=== PATIENT | male | born 1945 | race Caucasian/White ===

== ENCOUNTER 2019-08-07 07:32 | Day surgery (SDC) | payer MEDICARE, OTHER ==
[~2019-08-07] VITALS: Ht 188 cm; Wt 94.2 kg
[~2019-08-07 07:32] MED LIST: ATORVASTATIN; Aspir 8181 MG; CALCIT950; CLON1; DIAZ10 PO; FISH1000; HYDACE5 PO; HYOS.125 SL; METO25ER; MULVITMIND; Prinivil10 MG; Protonix40 MG PO; TRAM50; ZOLP10
== END 2019-08-07 09:28 | disposition home or self-care (01) ==
LOC: ORSCSDS 07:32
PROVIDERS: Surgery
PROC: 0DJ08ZZ Inspection of Upper Intestinal Tract, Via Natural or Artificial Opening Endoscopic (ICD-10-PCS; principal; 2019-08-07 08:45)
DX: K30 Functional dyspepsia (principal); I25.10 Atherosclerotic heart disease of native coronary artery without angina pectoris; I25.2 Old myocardial infarction; Z87.11 Personal history of peptic ulcer disease; Z87.891 Personal history of nicotine dependence; Z79.82 Long term (current) use of aspirin; Z79.899 Other long term (current) drug therapy
CPT/HCPCS: J2704; J7120

== ENCOUNTER → 2019-11-06 | Outpatient (CLI) | payer MEDICARE, OTHER | END | disposition home or self-care (01) | LOC: LAB SHORT 11:38 → PLD 11:38 | DX: C44.329 Squamous cell carcinoma of skin of other parts of face (principal) | CPT/HCPCS: 88305 ==

== ENCOUNTER → 2019-12-19 | Outpatient (CLI) | payer MEDICARE, OTHER | END | disposition home or self-care (01) | LOC: LAB SHORT 09:07 → PLD 09:07 | DX: C44.329 Squamous cell carcinoma of skin of other parts of face (principal); L57.0 Actinic keratosis | CPT/HCPCS: 88305 ==

== ENCOUNTER 2021-01-01 15:52 | Observation (INO) | payer MEDICARE, OTHER ==
[~2021-01-01] VITALS: Ht 190.5 cm; Wt 95.0 kg
[2021-01-01 16:34] LABS: BASOPHILS ABSOLUTE AUTO 0.05 K/mm3 (0.00-0.23); BASOPHILS PERCENT AUTO 1 % (0-2); EOSINOPHILS ABSOLUTE AUTO 0.51 K/mm3 (0.00-0.68); EOSINOPHILS PERCENT AUTO 10 % (0-6); Hematocrit 37.7 % (37.0-53.0); Hemoglobin 13.2 g/dL (13.5-17.5); IMMATURE GRAN ABSOLUTE AUTO 0.03 K/mm3 (0.00-0.10); IMMATURE GRAN PERCENT AUTO 1 % (0-1); LYMPHOCYTES ABSOLUTE AUTO 1.84 K/mm3 (0.84-5.20); LYMPHOCYTES PERCENT AUTO 35 % (21-46); MONOCYTES ABSOLUTE AUTO 0.63 K/mm3 (0.16-1.47); MONOCYTES PERCENT AUTO 12 % (4-13); Mean Corpuscular HGB 34.5 pg (26.0-34.0); Mean Corpuscular Volume 98 fL (80-100); Mean Platelet Volume 9.8 fL (9.1-12.4); NEUTROPHILS ABSOLUTE AUTO 2.23 K/mm3 (1.96-9.15); NEUTROPHILS PERCENT AUTO 42 % (41-73); Platelet Count 108 K/mm3 (150-400); RDW Coefficient Variation 14.1 % (11.7-14.2); RDW Standard Deviation 49.9 fL (35.1-46.3); Red Blood Cell Count 3.83 M/mm3 (4.30-5.90); White Blood Cell Count 5.29 K/mm3 (4.00-11.30)
[2021-01-01 17:18] LABS: Alanine Aminotransfer (ALT/SGP 20 U/L (12-78); Albumin, Blood 3.5 g/dL (3.4-5.0); Alk Phos 62 U/L (50-136); Anion Gap 4 mmol/L (6-16); Aspartate Aminotrans (AST/SGOT 21 U/L (12-37); Bilirubin, Total 0.5 mg/dL (0.1-1.0); Blood Urea Nitrogen 25 mg/dL (8-24); CO2, Blood 27 mmol/L (21-32); Calcium, Blood 8.9 mg/dL (8.5-10.1); Chloride, Blood 109 mmol/L (98-108); Creatinine, Blood 1.04 mg/dL (0.60-1.20); Globulin, Blood 3.6 g/dL (2.2-4.0); Glomerular Filtration Rate >60 (60-); Glucose, Blood 94 mg/dL (70-99); Magnesium, Blood 2.3 mg/dL (1.6-2.4); Potassium, Blood 4.4 mmol/L (3.5-5.5); Sodium, Blood 140 mmol/L (136-145); Total Protein, Blood 7.1 g/dL (6.4-8.2)
[2021-01-01 20:48] LABS: Source, Urine Voided
[2021-01-01 20:54] LABS: Troponin I <0.015 ng/mL (0.000-0.040)
[2021-01-01 20:54] LABS: Appearance, Urine Clear (Clear); Bilirubin, Urine Neg (Neg); Blood, Urine Neg (Neg); Color, Urine Yellow (P-Yellow); Glucose Qualitative, Urine Neg (Neg); Ketones, Urine Neg (Neg); Leukocyte Esterase, Urine Neg (Neg); Nitrite, Urine Neg (Neg); Protein, Urine Neg (Neg); Specific Gravity, Urine 1.025 (1.003-1.022); Urobilinogen, Urine NORM (Normal)
[2021-01-01] MEDS ORDERED: PANT20 PO (21:19)
[2021-01-01] MEDS ORDERED: Aspir 8181 MG PO (21:19)
[2021-01-01 21:42] LABS: SARS-Cov-2 (COVID-19) PCR, MMC NEGATIVE (NEGATIVE)
--- NOTE | 2021-01-01 22:30 | NUR ---
RECEIVED REPORT FROM SONIDOED RN. PT TRANSPORTED TO MEDICAL FLOOR, SETTLED INTO ROOM, IN NAD. NO ACUTE NEEDS ASSESSED AT THIS TIME. BREAKER LAYER AT THE BEDSIDE. CALL LIGHT, POSSESSIONS IN REACH, BED IN LOW AND LOCKED POSITION WITH ALARMS ON.
[2021-01-02 05:25] LABS: BASOPHILS ABSOLUTE AUTO 0.03 K/mm3 (0.00-0.23); BASOPHILS PERCENT AUTO 1 % (0-2); EOSINOPHILS ABSOLUTE AUTO 0.48 K/mm3 (0.00-0.68); EOSINOPHILS PERCENT AUTO 10 % (0-6); Hematocrit 37.8 % (37.0-53.0); Hemoglobin 13.1 g/dL (13.5-17.5); IMMATURE GRAN ABSOLUTE AUTO 0.03 K/mm3 (0.00-0.10); IMMATURE GRAN PERCENT AUTO 1 % (0-1); LYMPHOCYTES ABSOLUTE AUTO 1.64 K/mm3 (0.84-5.20); LYMPHOCYTES PERCENT AUTO 36 % (21-46); MONOCYTES ABSOLUTE AUTO 0.53 K/mm3 (0.16-1.47); MONOCYTES PERCENT AUTO 12 % (4-13); Mean Corpuscular HGB Conc 34.7 g/dL (31.5-36.5); Mean Corpuscular Volume 98 fL (80-100); Mean Platelet Volume 9.7 fL (9.1-12.4); NEUTROPHILS PERCENT AUTO 41 % (41-73); Platelet Count 85 K/mm3 (150-400); RDW Coefficient Variation 13.7 % (11.7-14.2); RDW Standard Deviation 48.9 fL (35.1-46.3); Red Blood Cell Count 3.85 M/mm3 (4.30-5.90); White Blood Cell Count 4.61 K/mm3 (4.00-11.30)
--- NOTE | 2021-01-02 06:37 | NUR ---
FLEET SERVICE MANAGER SUMMARY PT RESTING, IN NAD. VS REVIEWED,WNL. NO ACUTE CHANGES IN CONDITION TO REPORT OVERNIGHT, NEURO STATUS WNL. HAS BEEN SLEEPING OFF AND ON. UPDATED THIS MORNING ON PT CONDITION AND LIKELY D/C THIS AFTERNOON, STATED SHE WOULD CALL LATER THIS MORNING FOR AN UPDATE. PT DENIES NEEDS AT THIS TIME. CALL LIGHT, POSSESSIONS IN REACH, BED IN LOW AND LOCKED POSITION. WILL CONTINUE TO PROVIDE CARE UNTIL REPORT GIVEN TO ONCOMING RN.
[2021-01-02] MEDS ORDERED: CLOP75 PO ×2 (15:30→15:31)
--- NOTE | 2021-01-02 16:12 | NUR ---
SHIFT SUMMARY PT IS A&O, PLEASANT AND CO-OP. DENIED NEEDS THRU OUT THE DAY. PT WAITING TO GO HOME SINCE THIS AM. DR OWENS WAITING FOR US RESULTS TO POST. NO ACUTE CHANGES TO PRESENT. VSS; SEE CHART. PT DENIED PAIN, NO C/O. D/C ORDERS PLACED. PT CALLED . D/C INSTRUCTIONS DISCUSSED WITH PT AND . MEDS FAXED TO [facility] IN [place], PER PT REQUEST. PT AND VERBALIZED UNDERSTANDING OF NEW MEDICATION, PLAVIX. DECLINED FURTHER NEEDS. PT D/C'D TO HOME WITH .
== END 2021-01-02 16:20 | disposition home or self-care (01) ==
LOC: ER 15:52 → MEDS 15:53 → ENPENDDIS 01-02 15:19 → MEDS 01-02 16:20
PROVIDERS: Emergency Medicine; Physician Assistant; ADMIT Hospitalist
DX: G45.9 Transient cerebral ischemic attack, unspecified (principal); I25.10 Atherosclerotic heart disease of native coronary artery without angina pectoris; D69.6 Thrombocytopenia, unspecified; I25.2 Old myocardial infarction; Z96.653 Presence of artificial knee joint, bilateral; Z95.5 Presence of coronary angioplasty implant and graft; Z85.828 Personal history of other malignant neoplasm of skin; Z87.891 Personal history of nicotine dependence; R00.1 Bradycardia, unspecified; Z79.82 Long term (current) use of aspirin; Z20.822 Contact with and (suspected) exposure to COVID-19
CPT/HCPCS: 36415; 70450; 71046; 80053; 81003; 83735; 84484; 85025; 93005; 93010; 93880; 99285-25; A9270; C9113; G0378; J7030; U0004

== ENCOUNTER 2021-07-10 08:09 | Emergency (ER) | payer MEDICARE, OTHER ==
[~2021-07-10] VITALS: Ht 190.5 cm; Wt 86.2 kg
[~2021-07-10 08:09] MED LIST changes: +Aspir 8181 MG PO; +CLOP75 PO; +PANT20 PO
[2021-07-10 09:03] LABS: Source, Urine Clean Catch
[2021-07-10 09:10] LABS: Appearance, Urine Clear (Clear); Bilirubin, Urine Neg (Neg); Blood, Urine Neg (Neg); Color, Urine Yellow (P-Yellow); Glucose Qualitative, Urine Neg (Neg); Ketones, Urine Neg (Neg); Leukocyte Esterase, Urine Neg (Neg); Nitrite, Urine Neg (Neg); Protein, Urine Neg (Neg); Urobilinogen, Urine NORM (Normal)
[2021-07-10 09:26] LABS: Hematocrit 22.1 % (37.0-53.0); Hemoglobin 7.5 g/dL (13.5-17.5); Mean Corpuscular HGB 34.7 pg (26.0-34.0); Mean Corpuscular HGB Conc 33.9 g/dL (31.5-36.5); Mean Corpuscular Volume 102 fL (80-100); Mean Platelet Volume 9.2 fL (9.1-12.4); RDW Coefficient Variation 16.9 % (11.7-14.2); RDW Standard Deviation 58.2 fL (35.1-46.3); Red Blood Cell Count 2.16 M/mm3 (4.30-5.90); White Blood Cell Count 2.42 K/mm3 (4.00-11.30)
[2021-07-10 09:54] LABS: Alanine Aminotransfer (ALT/SGP 14 U/L (12-78); Albumin, Blood 3.2 g/dL (3.4-5.0); Albumin/Globulin Ratio 0.9 (0.8-1.8); Alk Phos 67 U/L (50-136); Anion Gap 6 mmol/L (6-16); Aspartate Aminotrans (AST/SGOT 10 U/L (12-37); Bilirubin, Total 0.3 mg/dL (0.1-1.0); Blood Urea Nitrogen 20 mg/dL (8-24); CO2, Blood 23 mmol/L (21-32); Calcium, Blood 8.6 mg/dL (8.5-10.1); Chloride, Blood 111 mmol/L (98-108); Creatinine, Blood 0.95 mg/dL (0.60-1.20); Globulin, Blood 3.7 g/dL (2.2-4.0); Glomerular Filtration Rate >60 (60-); Glucose, Blood 90 mg/dL (70-99); Platelet Count 42 K/mm3 (150-400); Sodium, Blood 140 mmol/L (136-145); Total Protein, Blood 6.9 g/dL (6.4-8.2)
[2021-07-10 10:01] LABS: BASOPHILS ABSOLUTE MAN 0.07 K/mm3 (0.00-0.23); BASOPHILS PERCENT MAN 3 % (0-2); EOSINOPHILS ABSOLUTE MAN 0.21 K/mm3 (0.00-0.68); EOSINOPHILS PERCENT MAN 9 % (0-6); LYMPHOCYTES ABSOLUTE MAN 0.94 K/mm3 (0.84-5.20); LYMPHOCYTES PERCENT MAN 39 % (21-46); MONOCYTES ABSOLUTE MAN 0.24 K/mm3 (0.16-1.47); MONOCYTES PERCENT MAN 10 % (4-13); NEUTROPHILS ABSOLUTE MAN 0.94 K/mm3 (1.96-9.15); SEG NEUTROPHILS PERCENT MAN 39 % (41-73); TOTAL CELLS COUNTED 100
[2021-07-10 11:17] LABS: Influenza A, PCR NEGATIVE (NEGATIVE); Influenza B, PCR NEGATIVE (NEGATIVE); Resp Syncytial Virus, PCR NEGATIVE (NEGATIVE); SARS-Cov-2 (COVID-19) PCR, MMC NEGATIVE (NEGATIVE)
[2021-07-10] MEDS ORDERED: ONDA4ODT MM (11:48)
[2021-07-10] MEDS ORDERED: Percocet 5-3251 EACH PO (11:48)
[2021-07-10] MEDS ORDERED: Colace100 MG PO (11:48)
== END 2021-07-10 11:58 | disposition home or self-care (01) ==
LOC: ER 08:09
PROVIDERS: Emergency Medicine; Physician Assistant
DX: D61.818 Other pancytopenia (principal); I25.2 Old myocardial infarction; Z20.822 Contact with and (suspected) exposure to COVID-19; Z88.5 Allergy status to narcotic agent; Z79.899 Other long term (current) drug therapy; Z79.82 Long term (current) use of aspirin; Z79.02 Long term (current) use of antithrombotics/antiplatelets; Z87.891 Personal history of nicotine dependence
CPT/HCPCS: 0241U; 36415; 74176; 80053; 81003; 85025; 93005; 93010; J1170; J2405; J7030

== ENCOUNTER 2021-07-29 09:35 | Day surgery (SDC) | payer MEDICARE, OTHER ==
[~2021-07-29] VITALS: Ht 190.5 cm; Wt 87.5 kg
[~2021-07-29 09:35] MED LIST changes: +Colace100 MG PO; +ONDA4ODT MM; +Percocet 5-3251 EACH PO
[2021-07-29 11:12] LABS: Hematocrit 21.3 % (37.0-53.0); Hemoglobin 7.2 g/dL (13.5-17.5); Mean Corpuscular HGB 33.6 pg (26.0-34.0); Mean Corpuscular HGB Conc 33.8 g/dL (31.5-36.5); Mean Corpuscular Volume 100 fL (80-100); RDW Coefficient Variation 16.2 % (11.7-14.2); Red Blood Cell Count 2.14 M/mm3 (4.30-5.90); White Blood Cell Count 2.33 K/mm3 (4.00-11.30)
[2021-07-29 11:22] LABS: Platelet Count 48 K/mm3 (150-400)
[2021-07-29 11:43] LABS: BASOPHILS PERCENT MAN 0 % (0-2); EOSINOPHILS PERCENT MAN 9 % (0-6); LYMPHOCYTES PERCENT MAN 43 % (21-46); MONOCYTES ABSOLUTE MAN 0.18 K/mm3 (0.16-1.47); MONOCYTES PERCENT MAN 8 % (4-13); NEUTROPHILS ABSOLUTE MAN 0.93 K/mm3 (1.96-9.15); SEG NEUTROPHILS PERCENT MAN 40 % (41-73); TOTAL CELLS COUNTED 100
--- NOTE | 2021-07-29 12:13 | NUR ---
07/29/21 1213 Trinidad Ng History, Chart, Medications and Allergies reviewed before start of procedure. Patient confirms NPO status and agrees with scheduled surgery. 3-LEAD EKG REVIEWED WITH PHYSICIAN PRIOR TO START OF PROCEDURE. MONITOR INTACT WITH CONTINUOUS PULSE OXIMETRY AND INTERMITTENT BP. PATIENT DETERMINED TO BE ASA APPROPRIATE FOR PROPOFOL SEDATION PRIOR TO START OF PROCEDURE BY . Bite Block Placed & REMOVED AT END OF CASE.
--- NOTE | 2021-07-29 12:50 | NUR ---
REPORT TO JHONATAN ENNIS.
--- NOTE | 2021-07-29 13:19 | NUR ---
Patient up to Ambulate independently. Gait steady. Gabriela Paws warming gown applied. Discharge instructions reviewed with patient. Patient verbalizes understanding. Copy given to patient to take home. History, Chart, Medications and Allergies reviewed before start of procedure.Patient States Post-Procedure ride home has been arranged. Discharged via wheelchair to private car for ride home.
[2021-08-01] MEDS ORDERED: PLAVIX75 MG PO (13:55)
== END 2021-07-29 13:22 | disposition home or self-care (01) ==
LOC: ORSCMMR 09:35 → ORD 11:00 → ORSCMMR 13:22
PROVIDERS: Internal Medicine Gastroenterology
PROC: 0DB68ZX Excision of Stomach, Via Natural or Artificial Opening Endoscopic, Diagnostic (ICD-10-PCS; principal; 2021-07-29 11:00)
DX: R10.13 Epigastric pain (principal); R93.5 Abnormal findings on diagnostic imaging of other abdominal regions, including retroperitoneum; R93.89 Abnormal findings on diagnostic imaging of other specified body structures; I25.2 Old myocardial infarction; Z87.11 Personal history of peptic ulcer disease; Z79.01 Long term (current) use of anticoagulants; Z79.899 Other long term (current) drug therapy
CPT/HCPCS: 85025; 88305; A9270; J2704; J7120

== ENCOUNTER 2021-08-01 14:23 | Day surgery (SDC) | payer MEDICARE, OTHER ==
[~2021-08-01 14:23] MED LIST changes: +PLAVIX75 MG PO
== END 2021-08-01 15:20 | disposition home or self-care (01) ==
LOC: ATC 14:23 → LAB FUT 07-23 19:25 → EDSTATUS 07-23 19:25
DX: D61.818 Other pancytopenia (principal)
CPT/HCPCS: 36415; 86850; 86900; 86901; 86923; P9016

== ENCOUNTER 2021-08-26 18:39 | Inpatient (IN) | payer MEDICARE, OTHER ==
[~2021-08-26] VITALS: Ht 190.5 cm; Wt 86.2 kg
[~2021-08-26 18:39] MED LIST changes: -PANT20 PO; +PANT40 PO
[2021-08-26 20:03] LABS: International Normalized Ratio 1.08; Prothrombin Time Results 11.3 Sec (9.7-11.5)
[2021-08-26 20:04] LABS: Albumin, Blood 3.1 g/dL (3.4-5.0); Albumin/Globulin Ratio 0.8 (0.8-1.8); Bilirubin, Total 0.8 mg/dL (0.1-1.0); Bun/Creatinine Ratio 25.8 (12.0-20.0); Calcium, Blood 8.3 mg/dL (8.5-10.1); Creatinine, Blood 1.2 mg/dL (0.60-1.20); Globulin, Blood 3.8 g/dL (2.2-4.0); Total Protein, Blood 6.9 g/dL (6.4-8.2)
[2021-08-26 20:29] LABS: Influenza A, PCR NEGATIVE (NEGATIVE); Influenza B, PCR NEGATIVE (NEGATIVE); Resp Syncytial Virus, PCR NEGATIVE (NEGATIVE); SARS-Cov-2 (COVID-19) PCR, MMC NEGATIVE (NEGATIVE)
[2021-08-26 21:14] LABS: BASOPHILS PERCENT AUTO 0 % (0-2); EOSINOPHILS ABSOLUTE AUTO 0.02 K/mm3 (0.00-0.68); EOSINOPHILS PERCENT AUTO 2 % (0-6); Mean Corpuscular HGB 31.4 pg (26.0-34.0); Mean Corpuscular HGB Conc 33.9 g/dL (31.5-36.5); Mean Corpuscular Volume 92 fL (80-100); RDW Coefficient Variation 17.9 % (11.7-14.2); RDW Standard Deviation 58.6 fL (35.1-46.3); Red Blood Cell Count 1.85 M/mm3 (4.30-5.90); White Blood Cell Count 1.03 K/mm3 (4.00-11.30)
[2021-08-26 21:17] LABS: Source, Urine Clean Catch
[2021-08-26 21:22] LABS: Bilirubin, Urine Neg (Neg); Blood, Urine 1+ (Neg); Color, Urine Yellow (P-Yellow); Glucose Qualitative, Urine Neg (Neg); Ketones, Urine Neg (Neg); Leukocyte Esterase, Urine Neg (Neg); Nitrite, Urine Neg (Neg); Protein, Urine 2+ (Neg); Urobilinogen, Urine NORM (Normal)
[2021-08-26 21:24] LABS: Hemoglobin 5.8 g/dL (13.5-17.5); IMMATURE GRAN ABSOLUTE AUTO 0.02 K/mm3 (0.00-0.10); IMMATURE GRAN PERCENT AUTO 2 % (0-1); LYMPHOCYTES ABSOLUTE AUTO 0.54 K/mm3 (0.84-5.20); LYMPHOCYTES PERCENT AUTO 52 % (21-46); MONOCYTES ABSOLUTE AUTO 0.19 K/mm3 (0.16-1.47); MONOCYTES PERCENT AUTO 18 % (4-13); NEUTROPHILS ABSOLUTE AUTO 0.26 K/mm3 (1.96-9.15); NEUTROPHILS PERCENT AUTO 25 % (41-73); Platelet Count 17 K/mm3 (150-400)
[2021-08-26 21:25] LABS: Hematocrit 17.1 % (37.0-53.0)
[2021-08-26 21:30] LABS: Appearance, Urine Clear (Clear); Bacteria Few /hpf; Red Blood Cells, Urine 0-2 /hpf (0-2); Squamous Epithelial Cells Rare /hpf (Few); White Blood Cells, Urine 0-2 /hpf (0-5)
[2021-08-26 21:31] LABS: Hyaline Casts 0-2 /lpf (0-2); Mucus Light (0-Heavy)
[2021-08-27] MEDS ORDERED: TEMA30 PO (01:27)
--- NOTE | 2021-08-27 04:04 | NUR ---
ADMISSION: PATIENT IS A/OX4. THE PT HAD A GLF AT HOME AND FX HIS LEFT ILIAC CREST W/ NO FUTURE SURGICAL INTERVENTION. HE IS CURRENTLY BEDREST AND NEEDED A SLIDE SHEET TRANSFER. THE PT DID RECEIVE 1 UNIT OF PRBC & 1 UNIT OF PLATELETS. HE WAS HERE YESTERDAY FOR 2 UNITS OF PRBCs R/T HX OF ANEMIA. HE DID RECEIVE FENTANYL W/ EMS AND IN THE ED, BUT STATED THAT IS WAS INEFFECTIVE; DILAUDID 0.5-1MG WAS ORDERED AN ALTERNATIVE. HIS CMS IS INTACT IN THE LEFT LEG; PEDAL PULSES ARE PALPABLE, TEMPERATURE IS WARM, BUT PAIN IS NOT WNL; THE DILAUDID SEEMED EFFECTIVE FOR THE 1ST O.5MG DOSE. THE PT WAS EDUCATED ON THE USE OF THE CALL LIGHT AND WE'LL CONTINUE TO MONITOR THE REMAINDER OF THE SHIFT.
[2021-08-27 05:06] LABS: BASOPHILS PERCENT AUTO 0 % (0-2); EOSINOPHILS ABSOLUTE AUTO 0.03 K/mm3 (0.00-0.68); EOSINOPHILS PERCENT AUTO 2 % (0-6); Hematocrit 19.5 % (37.0-53.0); Hemoglobin 6.6 g/dL (13.5-17.5); Mean Corpuscular HGB Conc 33.8 g/dL (31.5-36.5); Mean Corpuscular Volume 92 fL (80-100); RDW Coefficient Variation 17.6 % (11.7-14.2); RDW Standard Deviation 58.6 fL (35.1-46.3); Red Blood Cell Count 2.13 M/mm3 (4.30-5.90)
[2021-08-27 05:18] LABS: IMMATURE GRAN ABSOLUTE AUTO 0.02 K/mm3 (0.00-0.10); IMMATURE GRAN PERCENT AUTO 2 % (0-1); LYMPHOCYTES ABSOLUTE AUTO 0.83 K/mm3 (0.84-5.20); LYMPHOCYTES PERCENT AUTO 64 % (21-46); MONOCYTES ABSOLUTE AUTO 0.21 K/mm3 (0.16-1.47); MONOCYTES PERCENT AUTO 16 % (4-13); NEUTROPHILS ABSOLUTE AUTO 0.21 K/mm3 (1.96-9.15); NEUTROPHILS PERCENT AUTO 16 % (41-73)
[2021-08-27 05:19] LABS: Platelet Count 17 K/mm3 (150-400)
[2021-08-27 14:22] LABS: Hematocrit 22.7 % (37.0-53.0); Hemoglobin 7.7 g/dL (13.5-17.5); Mean Corpuscular HGB 31.2 pg (26.0-34.0); Mean Corpuscular HGB Conc 33.9 g/dL (31.5-36.5); Mean Corpuscular Volume 92 fL (80-100); RDW Coefficient Variation 16.5 % (11.7-14.2); RDW Standard Deviation 55.3 fL (35.1-46.3); Red Blood Cell Count 2.47 M/mm3 (4.30-5.90); White Blood Cell Count 1.23 K/mm3 (4.00-11.30)
[2021-08-27 14:31] LABS: Platelet Count 15 K/mm3 (150-400)
[2021-08-27 18:09] LABS: BASOPHILS PERCENT MAN 0 % (0-2); EOSINOPHILS ABSOLUTE MAN 0.07 K/mm3 (0.00-0.68); EOSINOPHILS PERCENT MAN 6 % (0-6); LYMPHOCYTES % ATYPICAL MANUAL 2 % (0-0); LYMPHOCYTES ABSOLUTE MAN 0.73 K/mm3 (0.84-5.20); LYMPHOCYTES PERCENT MAN 58 % (21-46); MONOCYTES ABSOLUTE MAN 0.07 K/mm3 (0.16-1.47); MONOCYTES PERCENT MAN 6 % (4-13); MYELOCYTE ABSOLUTE MAN 0.02 K/mm3 (0.00-0.00); MYELOCYTE PERCENT MAN 2 % (0-0); NEUTROPHILS ABSOLUTE MAN 0.31 K/mm3 (1.96-9.15); SEG NEUTROPHILS PERCENT MAN 26 % (41-73); TOTAL CELLS COUNTED 50
--- NOTE | 2021-08-27 18:35 | NUR ---
SHIFT SUMMARY PT IN PAIN WITH ANY MOVEMENT. REPORTS PAIN UNDER HIS LEFT SHOULDER BLADE WHICH HEAT WAS APPLIED FOR SOME EFFECT. MEDICATED FOR PAIN EVERY 2 TO 2.5 HOURS. ORAL PAIN MEDS STARTED THIS EVENING. WILL MONITER FOR EFFECTIVENESS. REPORTS MINIMAL APPETITE DUE TO INJURY. DID EAT A FEW BITES OF A SANDWICH BROUGHT IN. ICE CREAM AND ENSURE OFFERED AND GIVEN.
[2021-08-27 20:05] LABS: Hematocrit 22.2 % (37.0-53.0); Hemoglobin 7.6 g/dL (13.5-17.5); Mean Corpuscular HGB 31.1 pg (26.0-34.0); Mean Corpuscular HGB Conc 34.2 g/dL (31.5-36.5); Mean Corpuscular Volume 91 fL (80-100); RDW Coefficient Variation 16.5 % (11.7-14.2); RDW Standard Deviation 54.4 fL (35.1-46.3); Red Blood Cell Count 2.44 M/mm3 (4.30-5.90); White Blood Cell Count 1.07 K/mm3 (4.00-11.30)
[2021-08-27 20:29] LABS: Platelet Count 15 K/mm3 (150-400)
[2021-08-27 21:26] LABS: BAND PERCENT MAN 8 % (0-8); BASOPHILS PERCENT MAN 0 % (0-2); EOSINOPHILS ABSOLUTE MAN 0.04 K/mm3 (0.00-0.68); EOSINOPHILS PERCENT MAN 4 % (0-6); LYMPHOCYTES % ATYPICAL MANUAL 4 % (0-0); LYMPHOCYTES ABSOLUTE MAN 0.74 K/mm3 (0.84-5.20); LYMPHOCYTES PERCENT MAN 66 % (21-46); METAMYELOCYTE ABSOLUTE MAN 0.01 K/mm3 (0.00-0.00); METAMYELOCYTE PERCENT MAN 1 % (0-0); MONOCYTES ABSOLUTE MAN 0.06 K/mm3 (0.16-1.47); MONOCYTES PERCENT MAN 6 % (4-13); SEG NEUTROPHILS PERCENT MAN 11 % (41-73); TOTAL CELLS COUNTED 100
[2021-08-28 05:15] LABS: Hematocrit 22.4 % (37.0-53.0); Hemoglobin 7.8 g/dL (13.5-17.5); Mean Corpuscular HGB 31.7 pg (26.0-34.0); Mean Corpuscular HGB Conc 34.8 g/dL (31.5-36.5); Mean Corpuscular Volume 91 fL (80-100); RDW Coefficient Variation 16.1 % (11.7-14.2); RDW Standard Deviation 51.8 fL (35.1-46.3); Red Blood Cell Count 2.46 M/mm3 (4.30-5.90)
[2021-08-28 05:28] LABS: Platelet Count 15 K/mm3 (150-400)
[2021-08-28 05:55] LABS: White Blood Cell Count 0.96 K/mm3 (4.00-11.30)
--- NOTE | 2021-08-28 06:40 | NUR ---
SHIFT SUMMARY Pt a/o x 4, med per mar for c/o pain to pelvis, back and shoulder, pt reports good pain relief with meds and repositioning. Voiding without difficulty, vss, afebrile, neutropenic precautions in place. Pt reports he rested well during the shift. Bruising noted to L abd/side. Anticipate d/c when medically stable and placement determined.
--- NOTE | 2021-08-28 10:00 | NUR ---
PT QUITE PLEASANT COOP A/O. TALKATIVE. DISCUSSED NANCY, MATTHEWITE NO HIGH 243. STATES PAIN CONTINUES. BUT IMPROVING. DISCUSSED TRYING TO CUT DILAUDID TO LOWER DOSE THIS DAY TO SEE IF COVERAGE IS ADEQUATE. UNDERSTANDS WILL NEED TO BE ON PO PAIN MEDS WHEN AT HOME. HE GOOD TO TRY AND SEE IF WORKS OKAY. MOSTLY IN LEFT HIP. H/R REG, NO MURMER NOTED. PER TELE NSR AT 72 PAC'S. LUNGS CLEAR, RESP EASY UNLABORED. ON R.A. BT X4 LAST BM YEST PER PT. IS TAKING BOWEL CARE MEDS IS ON PAIN MEDS. UNDERSTANDS TO STAY ON TOP OF THIS. VOIDS URINAL. BED IN LOW POSITION, CALL LITE IN REACH, CALLS APPROP
--- NOTE | 2021-08-28 16:54 | NUR ---
PT QUITE PLEASANT COOP TODAY. PAIN MANAGED WITH NORCO Q6 AND DILUDID FOR BREAKTHROUGH PAIN. DID DISCUSS DROPPING DOWN TO 0.5 MG TO TRY TODAY AFTER FIRST DOSE THIS AM. HE WILLING TO TRY. THIS DOSE DID KEEP HIM WELL FOR 2 1/2 HRS. WE ARE CONTINUING TO MONITOR. HE DID GET OUT OF BED TODAY. TOOK A SMALL STEP. THEN BACK TO BED PER PT. SO, OVERALL, SOME IMPROVEMENT NOTED. NO OTHER CONCERNS NOTED. BED IN LOW POSITION, CALL LITE IN REACH, CALLS APPROP
--- NOTE | 2021-08-29 04:04 | NUR ---
GENERAL OPERATIONS AGENT SUMMARY PATIENT HAD A FAIR SHIFT. HE IS PLEASANT AND COOPERATIVE WITH CARE. HE GOT HIS MEDICATION FOR PAIN NEEDED. NO OTHER COMPLAINTS. V/S WERE STABLE. WILL CONTINUE TO MONITOR HIM.
--- NOTE | 2021-08-29 18:36 | NUR ---
SHIFT SUMMARY PT A/O X3; PLEASANT AND COOPERATIVE WITH CARE. HE HAS HAD A DIFFICULT TIME WITH PAIN CONTROL THIS SHIFT. HE HAS BEEN REQUIRING PAIN MEDICATION NEARLY EVERY 2 HOURS AND WILL NOT TAKE IN ORAL PAIN MEDS DUE TO NAUSEA. PT HAS REFUSED ALL MEALS THIS SHIFT. ENCOURAGED TO EAT SINCE HE HAS HAD SO MUCH MEDICATION FOR PAIN BUT CONTINUES TO REFUSE. PT IS ABLE TO DRINK ENSURE SO HE HAS BEEN ENCOURAGED TO DRINK THAT. VSS. WILL REPORT TO NOC RN.
--- NOTE | 2021-08-30 01:39 | NUR ---
MATERIAL REQUIREMENTS PLANNING MANAGER SUMMARY PATIENT HAD A FAIR SHIFT, HE ALERT AND ORIENTED . HE HAS PAIN THAT IS ACUTE FROM FALL AT HOME0 MATERIAL REQUIREMENTS PLANNING MANAGER SUMMARY PATIENT HAD A FAIR SHIFT. HE IS ALERT AND ORIENTED. STILL N PAINS, HIS V/S WERE STABLE. NO OTHER COMPLAINT. WILL CONTINUE TO MONITOR YOU.
[2021-08-30 04:16] LABS: Hematocrit 21.2 % (37.0-53.0); Hemoglobin 7.1 g/dL (13.5-17.5); Mean Corpuscular HGB 30.7 pg (26.0-34.0); Mean Corpuscular HGB Conc 33.5 g/dL (31.5-36.5); Mean Corpuscular Volume 92 fL (80-100); RDW Coefficient Variation 15.3 % (11.7-14.2); Red Blood Cell Count 2.31 M/mm3 (4.30-5.90)
[2021-08-30 04:22] LABS: Platelet Count 23 K/mm3 (150-400)
[2021-08-30 04:33] LABS: Alanine Aminotransfer (ALT/SGP 13 U/L (12-78); Albumin, Blood 2.5 g/dL (3.4-5.0); Albumin/Globulin Ratio 0.6 (0.8-1.8); Alk Phos 69 U/L (50-136); Anion Gap 6 mmol/L (6-16); Aspartate Aminotrans (AST/SGOT 8 U/L (12-37); Bilirubin, Total 0.9 mg/dL (0.1-1.0); Blood Urea Nitrogen 29 mg/dL (8-24); Bun/Creatinine Ratio 28.4 (12.0-20.0); CO2, Blood 27 mmol/L (21-32); Calcium, Blood 8.5 mg/dL (8.5-10.1); Chloride, Blood 101 mmol/L (98-108); Creatinine, Blood 1.02 mg/dL (0.60-1.20); Globulin, Blood 4.3 g/dL (2.2-4.0); Glomerular Filtration Rate >60 (60-); Glucose, Blood 123 mg/dL (70-99); Potassium, Blood 4.2 mmol/L (3.5-5.5); Sodium, Blood 134 mmol/L (136-145); Total Protein, Blood 6.8 g/dL (6.4-8.2)
[2021-08-30 14:34] LABS: Potassium, Blood 3.9 mmol/L (3.5-5.5)
--- NOTE | 2021-08-30 17:11 | NUR ---
PATIENT IS ALERT AND ORIENTED AND COOPERATIVE WITH CARE. C/O LEFT HIP PAIN AND RIGHT SHOULDER PAIN, MEDICATED PER EMAR. INCONTINENT OF BLADDER AT TIMES, CAN USE THE URINAL. STARTED ON AN APPETITE STIMULANT TODAY. THE PATIENT'S VISITED HIM THIS MORNING. ORAL TEMPERATURE OF 101.6 THIS AFTERNOON, MEDICATED WITH TYLENOL. ICE PACK ON FOREHEAD, FAN FACING PATIENT AND HEAT TURNED OFF IN ROOM. WILL REASSESS TEMPERATURE. PATIENT'S IS LOOKING FORWARD TO SPEAKING WITH CARE MANAGEMENT ABOUT PLACEMENT. WILL CONTINUE TO MONITOR
--- NOTE | 2021-08-31 04:41 | NUR ---
Received patient AAOX3, with complaint of pain to the left hip and right shoulder. Patient is being medicated per EMAR. He received the oxy and still complaining of pain. He stated that it does not work. Patient is at R/A, Uses the urinal, We will continue with monitoring patient for any acute changes.
[2021-08-31 05:32] LABS: Hematocrit 19.9 % (37.0-53.0); Hemoglobin 6.7 g/dL (13.5-17.5); Mean Corpuscular HGB 30.9 pg (26.0-34.0); Mean Corpuscular HGB Conc 33.7 g/dL (31.5-36.5); Mean Corpuscular Volume 92 fL (80-100); Mean Platelet Volume 9.4 fL (9.1-12.4); RDW Coefficient Variation 15.1 % (11.7-14.2); RDW Standard Deviation 50.2 fL (35.1-46.3); Red Blood Cell Count 2.17 M/mm3 (4.30-5.90); White Blood Cell Count 1.09 K/mm3 (4.00-11.30)
[2021-08-31 05:40] LABS: Platelet Count 24 K/mm3 (150-400)
--- NOTE | 2021-08-31 15:56 | NUR ---
BLOOD TRANSFUSION BEGAN AT 1545. NO SIGNS OF TRANSFUSION REACTION AT THIS TIME. PATIENT HAS AN ORAL TEMPERATURE OF 100.1 BEFORE THE TRANSFUSION AND MEDICATED WITH TYLENOL PER EMAR. WILL CONTINUE TO MONITOR
--- NOTE | 2021-08-31 17:35 | NUR ---
PATIENT IS ALERT AND ORIENTED AND COOPERATIVE WITH CARE. HGB OF 6.7 THIS MORNING, PATIENT IS RECIEVING 1 UNIT OF PRBC AT THIS TIME. PATIENT ATE PART OF A LAWRENCE BURRITO THAT HIS BROUGHT IN TODAY. STILL HAS A POOR APPETITE OVERALL. TEMPERATURE OF 100.1 ORALLY THIS AFTERNOON, MEDICATED WITH TYLENOL. [facility] LAST ORAL TEMP WAS 98.5. WILL CONTINUE TO MONITOR
--- NOTE | 2021-09-01 06:45 | NUR ---
SHIFT SUMMARY PAITENT ALERT AND ORIENTED. PATIENT MEDICATED PER EMAR FOR PAIN. NO COMPLAINTS OF SHORTNESS OF BREATH. NO ACUTE ISSUES NOTED OVERNIGHT. BED IN LOWEST POSITION WITH WHEELS LOCKED AND ALARM ON. CALL LIGHT WITHIN REACH. REPORT GIVEN TO ONCOMING RN.
[2021-09-01 07:29] LABS: Hematocrit 20.5 % (37.0-53.0); Hemoglobin 7.1 g/dL (13.5-17.5)
--- NOTE | 2021-09-01 08:20 | NUR ---
CALLED DR DAIGLE- PT HAS NO MORNING LABS, ONLY A RECHECK H&H WAS DONE, HGB 7.1. PT ALSO HAS C/O TOUNG PAIN, NOTED ON ASSESSMENT THE TOUNG HAS YELLOW AND WHITE PATCHES T/O. LEFT A MESSAGE, ASKING FFOR A CALL BACK.
[2021-09-01 11:30] LABS: Anion Gap 7 mmol/L (6-16); Blood Urea Nitrogen 40 mg/dL (8-24); Bun/Creatinine Ratio 42.3 (12.0-20.0); CO2, Blood 26 mmol/L (21-32); Calcium, Blood 8.7 mg/dL (8.5-10.1); Chloride, Blood 100 mmol/L (98-108); Creatinine, Blood 0.95 mg/dL (0.60-1.20); Glomerular Filtration Rate >60 (60-); Glucose, Blood 137 mg/dL (70-99); Potassium, Blood 3.7 mmol/L (3.5-5.5); Sodium, Blood 133 mmol/L (136-145)
--- NOTE | 2021-09-01 18:53 | NUR ---
SHIFT NOTE MR WALLACE IS A&OX4, DOES SOMETIMES REPEAT STORIES. NO RESP DISTRESS ON RA. C/O PAIN TO LEFT HIP, LEFT LEG AND RIGHT SHOULDER TODAY. HE HAS TRIED OXY A COUPLE OF TIMES THOUGHOUT THE DAY AND IT SEEMS TO BE EFFECTIVE. HE WANTED THE IV DILAUDID THIS MORNING, BUT WAS DROUSY AFTER THE MIDDAY DOSE AND AFTER THAT HE AGREED TO TRY THE ORAL MEDICATIONS. HE DID NEED ONE MORE IV DILAUDID DOSE FOR ACUTE LEFT HIP/LEG PAIN IN THE AFTERNOON AND 0.5MG HELPED AND DIDN'T MAKE HIM TOO DROWSY. ASSISTED TO TURN AND REPOSITION FREQUENTLY THROUGHOUT THE DAY. UP WITH THE THERAPISTS AT BEDSIDE TODAY. NO RESP DISTRESS, BED IN LOW POSITION, CALL LIGHT WITHIN REACH.
--- NOTE | 2021-09-02 04:38 | NUR ---
SHIFT SUMMARY PATIENT HAD NO ACUTE CHANGES OBSERVED. AXOX 3 AND BEDREST. REPORTED LEFT HIP PAIN AND IV DILAUDID 0.5 MG AND PO OXYCODONE 5 MG ALTERNATED FOR PAIN MANAGEMENT. PATIENT ABLE TO SLEEP WHEN PAIN MANAGED. PIV REMAINS INTACT. DENIES SOB AND N/V. VSS/AFEBRILE. PATIENT REPOSITIONED FOR EASE OF LEFT HIP PAIN. TOPICAL ANNETTE, PATIENT HOME PAIN MEDICATION APPLIED TO RIGHT SHOULDER, LEFT KNEE AND LEFT DORSAL FOOT PER EMAR. COOPERATIVE WITH CARE. CALL LIGHT IN REACH. BED IN LOWEST POSITION. WILL CONTINUE TO MONITOR UNTIL DAY SHIFT NURSE ASSUMES CARE.
[2021-09-02 05:30] LABS: Hematocrit 19.7 % (37.0-53.0); Hemoglobin 6.7 g/dL (13.5-17.5); Mean Corpuscular Volume 91 fL (80-100); Mean Platelet Volume 9.6 fL (9.1-12.4); RDW Coefficient Variation 15.2 % (11.7-14.2); RDW Standard Deviation 50.5 fL (35.1-46.3); Red Blood Cell Count 2.16 M/mm3 (4.30-5.90)
[2021-09-02 05:49] LABS: Platelet Count 36 K/mm3 (150-400); White Blood Cell Count 0.78 K/mm3 (4.00-11.30)
[2021-09-02 06:07] LABS: Alanine Aminotransfer (ALT/SGP 15 U/L (12-78); Albumin, Blood 2.1 g/dL (3.4-5.0); Albumin/Globulin Ratio 0.4 (0.8-1.8); Alk Phos 66 U/L (50-136); Anion Gap 7 mmol/L (6-16); Aspartate Aminotrans (AST/SGOT 15 U/L (12-37); Bilirubin, Total 0.6 mg/dL (0.1-1.0); Blood Urea Nitrogen 39 mg/dL (8-24); Bun/Creatinine Ratio 45.9 (12.0-20.0); CO2, Blood 26 mmol/L (21-32); Calcium, Blood 8.6 mg/dL (8.5-10.1); Chloride, Blood 101 mmol/L (98-108); Creatinine, Blood 0.85 mg/dL (0.60-1.20); Globulin, Blood 4.8 g/dL (2.2-4.0); Glomerular Filtration Rate >60 (60-); Glucose, Blood 114 mg/dL (70-99); Potassium, Blood 3.6 mmol/L (3.5-5.5); Sodium, Blood 134 mmol/L (136-145); Total Protein, Blood 6.9 g/dL (6.4-8.2)
--- NOTE | 2021-09-02 06:22 | NUR ---
HgB 6.7, WBC 0.78, HOSPITALIST DR BERRIOS ORDERED ONE UNIT PRBC.
[2021-09-02 14:09] LABS: Influenza A, PCR NEGATIVE (NEGATIVE); Influenza B, PCR NEGATIVE (NEGATIVE); Resp Syncytial Virus, PCR NEGATIVE (NEGATIVE); SARS-Cov-2 (COVID-19) PCR, MMC NEGATIVE (NEGATIVE)
[2021-09-02] MEDS ORDERED: ACET500 PO (14:25)
[2021-09-02] MEDS ORDERED: JUVEN PO (14:26)
[2021-09-02] MEDS ORDERED: MEGESTROL400 MG/13 PO (14:27)
[2021-09-02] MEDS ORDERED: NYSTATIN100000 U10 MT (14:29)
[2021-09-02] MEDS ORDERED: OXAYDO5 M1 PO (14:31)
--- NOTE | 2021-09-02 15:15 | NUR ---
CALLED BABAK BHATTI FOR PATIENTS ANTICIPATED DISCHARGE THIS AFTERNOON. REPORT GIVEN TO NURSE AT FACILITY. LAST BM FOR PATIENT WAS ON Tuesday08/29/2021. PATIENT HAS BEEN TAKING DOCUSATE & MIRALAX DAILY.
[2021-09-02] MEDS ORDERED: [UNRECOGNIZED DRUG - OTHER] TOP (15:22)
== END 2021-09-02 15:50 | DRG 536 ==
LOC: ER 18:39 → MEDS 23:53 → ERHOLD 23:53 → MEDS 08-27 01:25
PROVIDERS: Emergency Medicine; Family Medicine; Internal Medicine; ADMIT Internal Medicine
PROC: 30233R1 Transfusion of Nonautologous Platelets into Peripheral Vein, Percutaneous Approach (ICD-10-PCS; principal; 2021-08-26)
PROC: 30233N1 Transfusion of Nonautologous Red Blood Cells into Peripheral Vein, Percutaneous Approach (ICD-10-PCS; 2021-08-26)
DX: S32.392A Other fracture of left ilium, initial encounter for closed fracture (principal); D61.818 Other pancytopenia; D62 Acute posthemorrhagic anemia; E44.0 Moderate protein-calorie malnutrition; Z20.822 Contact with and (suspected) exposure to COVID-19; S20.219A Contusion of unspecified front wall of thorax, initial encounter; D46.Z Other myelodysplastic syndromes; I25.10 Atherosclerotic heart disease of native coronary artery without angina pectoris; Z68.23 Body mass index [BMI] 23.0-23.9, adult; Z96.653 Presence of artificial knee joint, bilateral; I25.2 Old myocardial infarction; Z95.1 Presence of aortocoronary bypass graft; Z95.9 Presence of cardiac and vascular implant and graft, unspecified; Z28.21 Immunization not carried out because of patient refusal; Z95.5 Presence of coronary angioplasty implant and graft; Z98.42 Cataract extraction status, left eye; Z98.41 Cataract extraction status, right eye; Z88.5 Allergy status to narcotic agent; Z85.828 Personal history of other malignant neoplasm of skin; Z98.890 Other specified postprocedural states; Z79.02 Long term (current) use of antithrombotics/antiplatelets; Z79.899 Other long term (current) drug therapy; Z87.891 Personal history of nicotine dependence; W01.0XXA Fall on same level from slipping, tripping and stumbling without subsequent striking against object, initial encounter
CPT/HCPCS: 0241U; 36415; 36430; 70450; 71260; 74177; 80048; 80051; 80053; 81001; 83690; 83735; 83880; 85014; 85018; 85025; 85027; 85610; 86850; 86900; 86901; 86923; 93005; 93010; 96374; 96375; 96376; 97110; 97162; 97164; 97530; 99285-25; A9270; J1170; J2405; J2597; J3010; J7030; J7050; P9016; P9035; Q9967

== ENCOUNTER 2021-11-02 06:11 | Day surgery (SDC) | payer MEDICARE, OTHER ==
[~2021-11-02] VITALS: Ht 190.5 cm; Wt 88.6 kg
[~2021-11-02 06:11] MED LIST changes: +ACET500 PO; +JUVEN PO; +MEGESTROL400 MG/13 PO; +NYSTATIN100000 U10 MT; +OXAYDO5 M1 PO; +TEMA30 PO; +[UNRECOGNIZED DRUG - OTHER] TOP
[2021-11-02] MEDS ORDERED: CLOP75 PO (07:39)
== END 2021-11-02 09:49 | disposition home or self-care (01) ==
LOC: MHTC 06:11
DX: I25.10 Atherosclerotic heart disease of native coronary artery without angina pectoris (principal); I70.0 Atherosclerosis of aorta; I51.7 Cardiomegaly; I08.0 Rheumatic disorders of both mitral and aortic valves; G45.9 Transient cerebral ischemic attack, unspecified; E78.5 Hyperlipidemia, unspecified; Z95.1 Presence of aortocoronary bypass graft
CPT/HCPCS: 93312; 93325; A9270; J2370; J2704; J7030

== ENCOUNTER 2022-06-04 06:38 | Inpatient (IN) | payer MEDICARE ==
[~2022-06-04] VITALS: Ht 182.9 cm; Wt 87.1 kg
[2022-06-04 07:21] LABS: Hematocrit 20.8 % (37.0-53.0); Hemoglobin 7.7 g/dL (13.5-17.5); Mean Corpuscular HGB 35.8 pg (26.0-34.0); Mean Corpuscular Volume 97 fL (80-100); Mean Platelet Volume 11.7 fL (9.1-12.4); RDW Coefficient Variation 12.4 % (11.7-14.2); RDW Standard Deviation 44.1 fL (35.1-46.3); Red Blood Cell Count 2.15 M/mm3 (4.30-5.90); White Blood Cell Count 1.38 K/mm3 (4.00-11.30)
[2022-06-04 07:29] LABS: International Normalized Ratio 1.17; Prothrombin Time Results 12.2 Sec (9.7-11.5)
[2022-06-04 07:31] LABS: Albumin, Blood 2.9 g/dL (3.4-5.0); Albumin/Globulin Ratio 0.7 (0.8-1.8); Bilirubin, Direct 0.5 mg/dL (0.0-0.3); Bilirubin, Indirect 0.5 mg/dL (0.1-0.7); Bun/Creatinine Ratio 24.4 (12.0-20.0); C-REACTIVE PROTEIN, EXT RANGE 13.6 mg/dL (0.000-0.300); Calcium, Blood 8.7 mg/dL (8.5-10.1); Creatinine, Blood 0.94 mg/dL (0.60-1.20); Globulin, Blood 4.1 g/dL (2.2-4.0); Magnesium, Blood 1.9 mg/dL (1.6-2.4); Potassium, Blood 3.6 mmol/L (3.5-5.5)
[2022-06-04 07:40] LABS: Platelet Count 17 K/mm3 (150-400)
[2022-06-04 08:32] LABS: Influenza A, PCR NEGATIVE (NEGATIVE); Influenza B, PCR NEGATIVE (NEGATIVE); Resp Syncytial Virus, PCR NEGATIVE (NEGATIVE); SARS-Cov-2 (COVID-19) PCR, MMC NEGATIVE (NEGATIVE)
[2022-06-04 08:36] LABS: BAND PERCENT MAN 4 % (0-8); BASOPHILS PERCENT MAN 0 % (0-2); EOSINOPHILS PERCENT MAN 0 % (0-6); LYMPHOCYTES % ATYPICAL MANUAL 3 % (0-0); LYMPHOCYTES ABSOLUTE MAN 0.49 K/mm3 (0.84-5.20); LYMPHOCYTES PERCENT MAN 33 % (21-46); MONOCYTES ABSOLUTE MAN 0.12 K/mm3 (0.16-1.47); MONOCYTES PERCENT MAN 9 % (4-13); NEUTROPHILS ABSOLUTE MAN 0.75 K/mm3 (1.96-9.15); SEG NEUTROPHILS PERCENT MAN 51 % (41-73); TOTAL CELLS COUNTED 100
[2022-06-04 08:59] LABS: Body Fluid Crystals NEG (NEGATIVE)
[2022-06-04 10:19] LABS: WBC Count, Synovial Fluid 70626 /mm3 (0-180)
[2022-06-04 10:20] LABS: BODY FLUID RBC 0.479 M/mm3 (0-0); RBC Count, Synovial Fluid 479000 /mm3 (0-0)
[2022-06-04 10:25] LABS: Appearance, Synovial Fluid Bloody (Clear); Color, Synovial Fluid Red (None-P Yel)
[2022-06-04 12:30] LABS: Source, Urine Clean Catch
[2022-06-04 12:36] LABS: Monocytes/Macrophages, Synovia 11 % (0-65); Neutrophils, Synovial Fluid 89 % (0-24)
[2022-06-04 12:49] LABS: Appearance, Urine Clear (Clear); Bilirubin, Urine Neg (Neg); Blood, Urine 2+ (Neg); Color, Urine Yellow (P-Yellow); Glucose Qualitative, Urine Neg (Neg); Ketones, Urine 1+ (Neg); Leukocyte Esterase, Urine Neg (Neg); Nitrite, Urine Neg (Neg); Protein, Urine 2+ (Neg); Urobilinogen, Urine 1+ (Normal)
[2022-06-04 13:07] LABS: Bacteria Few /hpf; Mucus Light (0-Heavy); Red Blood Cells, Urine 0-2 /hpf (0-2); Squamous Epithelial Cells Rare /hpf (Few); White Blood Cells, Urine 0-2 /hpf (0-5)
[2022-06-04 13:35] LABS: Hemoglobin 6.3 g/dL (13.5-17.5)
[2022-06-04 13:48] LABS: Hematocrit 17.1 % (37.0-53.0)
--- NOTE | 2022-06-04 18:29 | NUR ---
SHIFT SUMMARY PATIENT ARRIVED FROM ED AT 1123 AND TRANSFERD TO PCU BED WITH A ONE PERSON STAND BY. VSS. TELE SR 80-90S. SEE SHIFT ASSESSMENT FOR FURTHER DETAILS. A/OX4. NO CHEST PAIN.PRESSURE. NO SHORTNESS OF BREATH. PATIENT REPORTS PAIN IN LEFT WRIST. ORTHO CONSULTED AND PLAN IS FOR PATIENT TO HAVE SURGERY TOMORROW AM. NPO AT MIDNIGHT AND FULL LIQUIDS UNTIL THEN. PLAN IS FOR PATIENT TO GO TO GI WITH MD YEBOAH AFTER ORTHO I&D. PATIENT UPDATED ON PLAN. PATIENT RECEIVED TWO UNITS OF PLATLETS. PATIENT IS CURRENTLY RECEIVING FIRST UNIT OF PRB, AND WILL RECEIVE SECOND AFTER THIS ONE IS COMPLETE. CALL LIGHT IS WITHIN REACH AND BED IN LOWEST POSITION. WILL CONITNUE TO MONITOR AND PROVIDE CARE UNTIL HAND OFF WITH NEXT SHIFT.
--- NOTE | 2022-06-04 19:30 | NUR ---
ASSUMED CARE. AOX3, ABLE TO USE CALL LIGHT APPROPRITALY. STATES PAIN IN THE LEFT WRIST BUT REFUSES PAIN MEDS AT THIS TIME. OFFERED WARM COMPRESS. LEFT WRIST SWOLLEN, TENDER TO TOUCH, GOOD CIRC TO FINGERTIPS. DENIES CHEST PAIN, SOB, LIGHTHEAD, OR ANY OTHER SYMPTOMS. BLOOD COMPLETE, NEW BAG VERIFIED AND HUNG. VS WNL. LS CLEAR. DENIES USE OF URINAL AT THIS TIME. ABD SOFT, NO NAUSEA, HYPOACTIVE BT. PROTONIX INFUSING, LR AT 100ML/HR. ENCOURAGE WATER INTAKE. WILL CONTINUE TO MONITOR.
[2022-06-04 22:14] LABS: Hematocrit 18.7 % (37.0-53.0); Hemoglobin 6.9 g/dL (13.5-17.5); Mean Corpuscular HGB Conc 36.9 g/dL (31.5-36.5); Mean Platelet Volume 10.1 fL (9.1-12.4); Platelet Count 66 K/mm3 (150-400); RDW Coefficient Variation 20.1 % (11.7-14.2); RDW Standard Deviation 66.7 fL (35.1-46.3); Red Blood Cell Count 2.09 M/mm3 (4.30-5.90); White Blood Cell Count 2.54 K/mm3 (4.00-11.30)
[2022-06-04 22:22] LABS: Mean Corpuscular Volume 90 fL (80-100)
[2022-06-05 04:31] LABS: Hematocrit 19.3 % (37.0-53.0); Hemoglobin 7.1 g/dL (13.5-17.5); Mean Corpuscular HGB Conc 36.8 g/dL (31.5-36.5); Mean Corpuscular Volume 90 fL (80-100); Mean Platelet Volume 10.8 fL (9.1-12.4); Platelet Count 66 K/mm3 (150-400); RDW Coefficient Variation 20.8 % (11.7-14.2); RDW Standard Deviation 68.2 fL (35.1-46.3); Red Blood Cell Count 2.15 M/mm3 (4.30-5.90); White Blood Cell Count 2.43 K/mm3 (4.00-11.30)
[2022-06-05 04:49] LABS: Bun/Creatinine Ratio 20.1 (12.0-20.0); Calcium, Blood 8.4 mg/dL (8.5-10.1); Creatinine, Blood 0.89 mg/dL (0.60-1.20); Potassium, Blood 3.3 mmol/L (3.5-5.5)
--- NOTE | 2022-06-05 05:27 | NUR ---
SHIFT SUMMARY; PT REMAINS ON PROTONIX GTT AT 10ML/HR. HE RECIEVED 1 UNIT OF PRBC TOTALLING 2 UNITS SINCE ADMISSION. HGB INCREASED TO 7.1 AND HCT TO 19.3. NO ACTIVE BLEEDING VISIUAL. HE DID ACCIDENTLY PULL OUT IV TO RIGHT AC WHICH THERE WAS NOTED CLOTS. DENIED ANY LIGHTHEADNESS. TMAX 99.1 LEFT WRIST REMAINS SWOLLEN, TENDER AND PAINFUL. MEDICATED FOR PAIN X2 WITH DILUADID 1MG. NPO SINCE MIDNIGHT OTHER THEN MOUTH SWABS. LR INFUSING AT 100ML/HR. CONTINUES ON 2L NC ONLY FOR DROPS IN SATS WHILE HE SLEEPS. NO OTHER CHANGES TO NOTE. CALL LIGHT IN REACH.
--- NOTE | 2022-06-05 10:13 | NUR ---
06/05/22 1013 Isaias Millan History, Chart, Medications and Allergies reviewed before start of procedure.MONITOR INTACT WITH CONTINUOUS PULSE OXIMETRY AND INTERMITTENT BP.Bite Block Placed.
--- NOTE | 2022-06-05 16:45 | NUR ---
SHIFT SUMMARY THIS RN ASSUMED CARE AT 0700. VSS. TELE SR. PATIENT IS ALERT AND ORIENTED X4. PERRLA. PATIENT REPORTS NO CHEST PAIN/PRESSURE. NO SHORTNESS OF BREATH. PATIENT HAS LEFT WRIST AND SHOULDER PAIN TRHOUGHOUT THE SHIFT AND HAS BEEN MEDICATED PER ORDERS. SEE SHIFT ASSESSMENT AND PAIN ASSESSMENT FOR FURTHER DETAILS. PATIENT IS INDEPDENT IN ADLS, AND THIS RN HAS BEEN A STAND BY ASSIST WHEN USING BEDSIDE URINAL. PATIENT USES CALL LIGHT APPROPRIATELY. PATIENT HAD AN I&D ON LEFT WRIST. SEE NOTE FOR FURTHER DETIALS. DRESSING INTACT AND MD WILL BE BY IN THE MORNING TO CHANGE THE DRESSING. PATIENT HAD A SCOPE, SEE NOTE FOR FURTHER DETAILS. PATIENT IS A REGULAR DIET TOLERATED. NO ACUTE CHANGES THIS SHIFT. VSS REMAIN STABLE POST SURGERY. SEE VITAL SIGN SECTION. CALL LIGHT WITHIN REACH AND BED IN LOWEST POSITION. PLAN OF CARE UP TO DATE. WILL CONTINUE TO MONITOR AND PROVIDE CARE UNTIL HAND OFF WITH NOC SHIFT.
[2022-06-05 19:20] LABS: Vancomycin, Trough 11.7 ug/mL (5.0-10.0)
[2022-06-06 04:14] LABS: Hematocrit 19.4 % (37.0-53.0); Hemoglobin 7.1 g/dL (13.5-17.5); Mean Corpuscular HGB 33.2 pg (26.0-34.0); Mean Corpuscular HGB Conc 36.6 g/dL (31.5-36.5); Mean Corpuscular Volume 91 fL (80-100); Mean Platelet Volume 10.8 fL (9.1-12.4); Platelet Count 57 K/mm3 (150-400); RDW Coefficient Variation 20.3 % (11.7-14.2); RDW Standard Deviation 68.7 fL (35.1-46.3); Red Blood Cell Count 2.14 M/mm3 (4.30-5.90); White Blood Cell Count 2.38 K/mm3 (4.00-11.30)
[2022-06-06 04:32] LABS: Albumin, Blood 2.2 g/dL (3.4-5.0); Albumin/Globulin Ratio 0.6 (0.8-1.8); Bilirubin, Total 0.5 mg/dL (0.1-1.0); Bun/Creatinine Ratio 22.5 (12.0-20.0); Calcium, Blood 8.2 mg/dL (8.5-10.1); Creatinine, Blood 0.89 mg/dL (0.60-1.20); Globulin, Blood 3.8 g/dL (2.2-4.0); Potassium, Blood 3.2 mmol/L (3.5-5.5)
--- NOTE | 2022-06-06 05:19 | NUR ---
Patient slept off and on t/o night. C/o L wrist pain, elevation and PRN medication provide much relief. VSS. 2L NC applied for sleep as patient desats into 80's with sleep. Urine dark radha in color. L wrist still covered with wrap the doctor placed. Patient states he is eager to go home. No acute events
[2022-06-06 05:29] LABS: BAND PERCENT MAN 1 % (0-8); BASOPHILS PERCENT MAN 0 % (0-2); EOSINOPHILS PERCENT MAN 0 % (0-6); LYMPHOCYTES ABSOLUTE MAN 0.66 K/mm3 (0.84-5.20); LYMPHOCYTES PERCENT MAN 28 % (21-46); MONOCYTES ABSOLUTE MAN 0.38 K/mm3 (0.16-1.47); MONOCYTES PERCENT MAN 16 % (4-13); MYELOCYTE ABSOLUTE MAN 0.04 K/mm3 (0.00-0.00); MYELOCYTE PERCENT MAN 2 % (0-0); NEUTROPHILS ABSOLUTE MAN 1.28 K/mm3 (1.96-9.15); SEG NEUTROPHILS PERCENT MAN 53 % (41-73); TOTAL CELLS COUNTED 100
--- NOTE | 2022-06-06 10:39 | NUR ---
CARE ASSUMPTION THIS RN ASSUMED CARE FROM REECE ISRAEL AT 0700. VSS. TELE SR. NEURO IS INTACT, ALERT AND ORIENTED X4. PERRLA. PATIENT REPORTS NO PAIN, NO CHEST PAIN/PRESSURE, AND NO SHORTNESS OF BREATH. LUNG SOUNDS ARE CLEAR BILATERALLY. 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 PATIENT ABD IS ACTIVE AND IS CONTIENT OF BOWELS AND BLADDER. PATIENT USES BEDSIDE URINAL. SEE SHIFT ASSESSMENT FOR FURTHER DETIALS. PATIENT CALLS APPROPRIATELY. PLAN OF CARE IS UP TO DATE. CALL LIGHT WITHIN REACH AND BED IN LOWEST POSITION. WILL CONTINUE TO MONITOR AND PROVIDE CARE.
--- NOTE | 2022-06-06 17:51 | NUR ---
SHIFT SUMMARY PATIENT HAS A PICC LINE IN PLACE, AND WILL BE DISCHARGED WITH IT IN PLACE DUE TO NEEDING IV ABX CIGAR HEAD HOLER. PATIENT EDCUATED ON PICC LINE AND RATIONALE FOR IT. PICC LINE PAPER WORK FOR PATIENT TO TAKE HOME IS ON THE PATIENTS BEDSIDE TABLE. NO ACUTE CHANGES THIS SHIFT. THE PLAN IS TO HOPEFULLY DISCHARGE TOMORROW. NO ACUTE CHANGES THIS SHIFT. CALL LIGHT WITHIN REACH AND BED IN LOWEST POSITION. WILL CONTINUE TO MONITOR AND PROVIDE CARE UNTIL HAND OFF WITH NEXT SHIFT.
[2022-06-07 03:53] LABS: Hemoglobin 6.5 g/dL (13.5-17.5); Mean Corpuscular HGB 32.8 pg (26.0-34.0); Mean Corpuscular HGB Conc 36.3 g/dL (31.5-36.5); Mean Corpuscular Volume 90 fL (80-100); RDW Coefficient Variation 19.6 % (11.7-14.2); RDW Standard Deviation 65.4 fL (35.1-46.3); Red Blood Cell Count 1.98 M/mm3 (4.30-5.90); White Blood Cell Count 2.11 K/mm3 (4.00-11.30)
[2022-06-07 04:04] LABS: Platelet Count 42 K/mm3 (150-400)
[2022-06-07 04:05] LABS: Hematocrit 17.9 % (37.0-53.0)
[2022-06-07 04:17] LABS: Bun/Creatinine Ratio 21.3 (12.0-20.0); Calcium, Blood 8.4 mg/dL (8.5-10.1); Creatinine, Blood 0.75 mg/dL (0.60-1.20); Potassium, Blood 3.4 mmol/L (3.5-5.5)
[2022-06-07 04:34] LABS: BAND PERCENT MAN 1 % (0-8); BASOPHILS ABSOLUTE MAN 0.02 K/mm3 (0.00-0.23); BASOPHILS PERCENT MAN 1 % (0-2); EOSINOPHILS PERCENT MAN 0 % (0-6); LYMPHOCYTES % ATYPICAL MANUAL 1 % (0-0); LYMPHOCYTES ABSOLUTE MAN 1.05 K/mm3 (0.84-5.20); LYMPHOCYTES PERCENT MAN 49 % (21-46); MONOCYTES ABSOLUTE MAN 0.25 K/mm3 (0.16-1.47); MONOCYTES PERCENT MAN 12 % (4-13); NEUTROPHILS ABSOLUTE MAN 0.78 K/mm3 (1.96-9.15); SEG NEUTROPHILS PERCENT MAN 36 % (41-73); TOTAL CELLS COUNTED 100
--- NOTE | 2022-06-07 05:51 | NUR ---
Patient remained A/Ox4, slept most of the night other than wakening with pain in L wrist. Repositioning and PRN medication effective. Patient still continues to not eat anything, only consuming a popsicle this shift. Patient has small episode of emesis that was orange (popsicle color) in color and without blood. Patients CBC came back with critical low numbers, 1U PRBC ordered and currently infusing without any complaint. VSS, although BP increasing with SBP 140-150. Urine remains to be a dark radha color. Will report to dayshift RN.
[2022-06-07 09:30] LABS: Hematocrit 19.9 % (37.0-53.0); Hemoglobin 7.2 g/dL (13.5-17.5); Mean Corpuscular HGB 32.6 pg (26.0-34.0); Mean Corpuscular HGB Conc 36.2 g/dL (31.5-36.5); Mean Corpuscular Volume 90 fL (80-100); RDW Standard Deviation 66.2 fL (35.1-46.3); Red Blood Cell Count 2.21 M/mm3 (4.30-5.90); White Blood Cell Count 2.09 K/mm3 (4.00-11.30)
[2022-06-07 09:34] LABS: Platelet Count 37 K/mm3 (150-400)
[2022-06-07 10:06] LABS: BAND PERCENT MAN 3 % (0-8); BASOPHILS ABSOLUTE MAN 0.02 K/mm3 (0.00-0.23); BASOPHILS PERCENT MAN 1 % (0-2); EOSINOPHILS ABSOLUTE MAN 0.02 K/mm3 (0.00-0.68); EOSINOPHILS PERCENT MAN 1 % (0-6); LYMPHOCYTES % ATYPICAL MANUAL 2 % (0-0); LYMPHOCYTES ABSOLUTE MAN 0.98 K/mm3 (0.84-5.20); LYMPHOCYTES PERCENT MAN 45 % (21-46); MONOCYTES PERCENT MAN 10 % (4-13); NEUTROPHILS ABSOLUTE MAN 0.75 K/mm3 (1.96-9.15); SEG NEUTROPHILS PERCENT MAN 33 % (41-73); TOTAL CELLS COUNTED 100
[2022-06-07 10:07] LABS: MYELOCYTE PERCENT MAN 5 % (0-0)
--- NOTE | 2022-06-07 12:09 | NUR ---
TRANSFER NOTE PATIENT ALERT AND ORIENTED THROUGHOUT AM. TOLERATED 1 UNIT PRBC WELL. DECLINED BREAKFAST. SBA IN ROOM. LEFT WRIST IN GAUZE AND NATE WRAP. NEUROVASCULARLY INTACT. MEDICATED FOR PAIN PER EMAR. VSS. PLAN TO DISCHARGE HOME WHEN IV ABX INFUSIONS ARE SET UP. ORDER FOR TRANSFER TO MEDICAL FLOOR. CALLED REPORT TO MEDICAL FLOOR RN. PATIENT LEFT UNIT AT 1200 VIA WHEELCHAIR FOR ROOM 362.
--- NOTE | 2022-06-07 13:50 | NUR ---
CALLED DR WOENS TO CLARIFY ORDERS- PT ARRIVED WITH NO LR RUNNING PLAN FOR DC TOMORROW, STILL ON IV PAIN MEDS Q2. RECIEVED ORDERS TO DC ALL IV MEDS, EXCEPT VANCO. ORDERED OXY 5MG FOR PAIN Q4P
[2022-06-07 19:35] LABS: Vancomycin, Trough 21.9 ug/mL (5.0-10.0)
--- NOTE | 2022-06-07 19:35 | NUR ---
SHIFT SUMMARY- PT ALERT AND ORIENTED 1PA IN THE ROOM. PT PAIN SEEMS WELL MANAGED ON PO OXY. BEDSIDE REPORT COMPLETED WITH NIGHT RN. NO CURRENT S&S OF DISTRESS NOTED, PT STATED HE WOULD LIKE PAIN MEDICATION WHEN NEXT AVAILABLE. NIGHT RN AWARE.
--- NOTE | 2022-06-08 04:08 | NUR ---
SHIFT SUMMARY ADMITTED FOR SEPTIC ARTHRITIS OF LEFT WRIST. FULL CODE. HOPEFUL FOR DC TODAY. PICC LINE IS IN PLACE. PLAN IS FOR IV ANTIB RX FOR 2 WEEKS, THEN PO ANTIB RX. HE IS A&O X4, STANDBY ASSIST - BRP. REGULAR DIET. NAUSEA AND PAIN MEDICATION GIVEN THIS SHIFT. DR. ISSA IS SURGICAL CONSULT, HAS PERFORMED I&D'S. PRBC'S GIVEN SINCE ADMIT. HX OF MYELODYSPLASTIC SYNDROME. HE IS ON RA. MONITORING PLATELET LABS WELL. HX OF PANCYTOPENIA WELL.
[2022-06-08] MEDS ORDERED: POTCHL20ER PO ×2 (13:19→13:22)
[2022-06-08] MEDS ORDERED: LEVO750 PO (13:19)
[2022-06-08] MEDS ORDERED: VANCOMYCIN IV (13:22)
[2022-06-08] MEDS ORDERED: VISBIOME 112.51 EACH PO (13:23)
[2022-06-08] MEDS ORDERED: OXYC5 PO (13:27)
--- NOTE | 2022-06-08 13:28 | NUR ---
VERBAL ORDER THIS RN TALKED WITH DR. OWENS ABOUT PT'S HOME MEDICATION-IS OXYCODONE 5 MG PO Q4P THAT WAS NOT ON HIM MED LIST. DR. OWENS GAVE VERBAL ORDER TO CONTINUE THIS MEDICATION ON PT'S DISCHARGE MEDICATION LIST.
--- NOTE | 2022-06-08 13:47 | NUR ---
DISCHARGE NOTE- PT AND SPOUSE WERE GIVEN VERBAL AND WRITTEN DISCHARGE INSTRUCTIONS AND ACKNOWLEDGED UNDERSTANDING OF THEM. PT WAS ASSISTED TO GET DRESSED, PICC LINE IN PLACE TO LONNIE WRSPPED LOOSLY WITH COBAN TO PREVENT SNAGS AT HOME. IS AWARE THE LINE NEEDS TO BE COVERED WELL THE PT HAND IF HE INTENDS TO SHOWER. ATC ARRANGED FOR 0830 INFUSION DAILY PT AND SPOUSE AWARE. PT ASSISTED TO WC BY THE AUTOMATIC GRINDER OPERATOR AND WAS ESCORTED OUT VIA WC BY THE AUTOMATIC GRINDER OPERATOR. NO S&S OF DISTRESS NOTED AT THE TIME OF DISCHARGE.
== END 2022-06-08 13:46 | disposition home or self-care (01) | DRG 853 ==
LOC: ER 06:38 → MEDS 09:54 → PCU 09:54 → MEDS 06-07 12:42
PROVIDERS: Family Medicine; Internal Medicine; Internal Medicine Gastroenterology; Orthopaedic Surgery; Student in an Organized Health Care Education/Training Program; ADMIT Internal Medicine
PROC: 30233R1 Transfusion of Nonautologous Platelets into Peripheral Vein, Percutaneous Approach (ICD-10-PCS; 2022-06-04)
PROC: 30233N1 Transfusion of Nonautologous Red Blood Cells into Peripheral Vein, Percutaneous Approach (ICD-10-PCS; 2022-06-04)
PROC: 0R9P3ZZ Drainage of Left Wrist Joint, Percutaneous Approach (ICD-10-PCS; 2022-06-04)
PROC: 3E03329 Introduction of Other Anti-infective into Peripheral Vein, Percutaneous Approach (ICD-10-PCS; 2022-06-04)
PROC: 0DJ08ZZ Inspection of Upper Intestinal Tract, Via Natural or Artificial Opening Endoscopic (ICD-10-PCS; 2022-06-05)
PROC: 0DJD8ZZ Inspection of Lower Intestinal Tract, Via Natural or Artificial Opening Endoscopic (ICD-10-PCS; principal; 2022-06-05 09:00)
PROC: 0RBP0ZZ Excision of Left Wrist Joint, Open Approach (ICD-10-PCS; 2022-06-05 09:00)
DX: A41.9 Sepsis, unspecified organism (principal); J18.9 Pneumonia, unspecified organism; D61.818 Other pancytopenia; M00.832 Arthritis due to other bacteria, left wrist; D62 Acute posthemorrhagic anemia; D84.9 Immunodeficiency, unspecified; K92.0 Hematemesis; R65.20 Severe sepsis without septic shock; M25.511 Pain in right shoulder; G89.29 Other chronic pain; D69.6 Thrombocytopenia, unspecified; D46.9 Myelodysplastic syndrome, unspecified; F10.10 Alcohol abuse, uncomplicated; E87.6 Hypokalemia; I25.10 Atherosclerotic heart disease of native coronary artery without angina pectoris; I73.9 Peripheral vascular disease, unspecified; Z96.653 Presence of artificial knee joint, bilateral; Z20.822 Contact with and (suspected) exposure to COVID-19; Z95.1 Presence of aortocoronary bypass graft; Z95.5 Presence of coronary angioplasty implant and graft; Z98.890 Other specified postprocedural states; Z88.5 Allergy status to narcotic agent; Z79.899 Other long term (current) drug therapy; Z79.891 Long term (current) use of opiate analgesic; I25.2 Old myocardial infarction; Z98.42 Cataract extraction status, left eye; Z98.41 Cataract extraction status, right eye; Z87.891 Personal history of nicotine dependence; Z87.81 Personal history of (healed) traumatic fracture; Z86.73 Personal history of transient ischemic attack (TIA), and cerebral infarction without residual deficits; Z86.79 Personal history of other diseases of the circulatory system; Z80.0 Family history of malignant neoplasm of digestive organs; Z87.19 Personal history of other diseases of the digestive system
CPT/HCPCS: 0241U; 20605; 36415; 36430; 36569; 71045; 73110; 80048; 80053; 80202; 81001; 82248; 83605; 83735; 84100; 84145; 85014; 85018; 85025; 85027; 85610; 85651; 85730; 86140; 86850; 86900; 86901; 86923; 87040; 87070; 87075; 89051; 89060; 93005; 93010; 96361-59; 96365-59; 96366-59; 96368; 96375-59; 96376-59; 99285-25; A9270; C1751; C9113; J0692; J1100; J1170; J2250; J2405; J2704; J2710; J2765; J3010; J3370; J7050; J7120; P9016; P9035

== ENCOUNTER 2022-06-09 06:00 | Day surgery (SDC) | payer MEDICARE ==
[~2022-06-09 06:00] MED LIST changes: +LEVO750 PO; +OXYC5 PO; +POTCHL20ER PO; +VANCOMYCIN IV; +VISBIOME 112.51 EACH PO
--- NOTE | 2022-06-09 11:03 | NUR ---
STAY INDEPENDENT QUESTIONNAIRE SCORES PATIENT MODERATE TO HIGH RISK FOR FALLING. NURSING ASSESSMENT THIS VISIT WOULD SCORE PT AN EXTREME FALL RISK. PT IS A TWO PERSON TRANSFER FROM WHEELCHAIR TO CHAIR USING A GAIT BELT. PT HAS LIMITED TO NO USE OF BILATERAL UPPER EXTREMITIES WITH SEPTIC ARTHRITIS TO LEFT WRIST AND INJURED ROTATOR CUFF TO RIGHT SHOULDER. PT'S TRANSFER IS A WEAK SHUFFLE OF FEET AND CANNOT STAND UPRIGHT FOR EXTENDED LENGTHS OF TIME. AFTER TODAY'S INFUSION PT FELL INTO A SEATED POSITION INTO THE WHEELCHAIR DUE TO FATIGUE VERSUS HAVING CONTROL OVER HIS BODY AND SITTING HIMSELF DOWN SAFELY INTO THE WHEELCHAIR.
== END 2022-06-09 10:55 | disposition home or self-care (01) ==
LOC: ATC 06:00
DX: M00.9 Pyogenic arthritis, unspecified (principal); I25.10 Atherosclerotic heart disease of native coronary artery without angina pectoris; D46.9 Myelodysplastic syndrome, unspecified; I25.2 Old myocardial infarction; Z86.73 Personal history of transient ischemic attack (TIA), and cerebral infarction without residual deficits; Z96.653 Presence of artificial knee joint, bilateral; Z95.5 Presence of coronary angioplasty implant and graft; Z87.891 Personal history of nicotine dependence
CPT/HCPCS: 96365; 96366; J3370; J7050

== ENCOUNTER 2022-06-11 00:12 | Day surgery (SDC) | payer MEDICARE ==
[~2022-06-11] VITALS: Ht 182.9 cm; Wt 88.0 kg
== END 2022-06-11 09:30 | disposition home or self-care (01) ==
LOC: ATC 00:12
DX: M00.9 Pyogenic arthritis, unspecified (principal); I25.10 Atherosclerotic heart disease of native coronary artery without angina pectoris; D46.9 Myelodysplastic syndrome, unspecified; Z87.891 Personal history of nicotine dependence
CPT/HCPCS: 96365; J0878

== ENCOUNTER 2022-06-12 00:45 | Day surgery (SDC) | payer MEDICARE | END 2022-06-12 09:58 | disposition home or self-care (01) | LOC: ATC 00:45 | DX: M00.9 Pyogenic arthritis, unspecified (principal); I25.10 Atherosclerotic heart disease of native coronary artery without angina pectoris; D46.9 Myelodysplastic syndrome, unspecified; E46 Unspecified protein-calorie malnutrition; I25.2 Old myocardial infarction; D61.818 Other pancytopenia; Z96.653 Presence of artificial knee joint, bilateral; Z95.5 Presence of coronary angioplasty implant and graft; Z87.891 Personal history of nicotine dependence; Z88.6 Allergy status to analgesic agent | CPT/HCPCS: 96365; J0878 ==

== ENCOUNTER 2022-06-13 01:17 | Day surgery (SDC) | payer MEDICARE | END 2022-06-13 09:35 | disposition home or self-care (01) | LOC: ATC 01:17 | DX: M00.9 Pyogenic arthritis, unspecified (principal); I25.10 Atherosclerotic heart disease of native coronary artery without angina pectoris; D46.Z Other myelodysplastic syndromes; Z86.73 Personal history of transient ischemic attack (TIA), and cerebral infarction without residual deficits; Z95.5 Presence of coronary angioplasty implant and graft; Z87.891 Personal history of nicotine dependence | CPT/HCPCS: 96365; J0878 ==

== ENCOUNTER 2022-06-14 00:32 | Day surgery (SDC) | payer MEDICARE | END 2022-06-14 09:00 | disposition home or self-care (01) | LOC: ATC 00:32 | DX: A41.9 Sepsis, unspecified organism (principal); D62 Acute posthemorrhagic anemia; M00.9 Pyogenic arthritis, unspecified; D61.818 Other pancytopenia; D46.9 Myelodysplastic syndrome, unspecified; J18.9 Pneumonia, unspecified organism; Z87.891 Personal history of nicotine dependence; Z96.653 Presence of artificial knee joint, bilateral | CPT/HCPCS: 96365; J0878 ==